=== PATIENT | female | born 1990 | race Caucasian/White ===

== ENCOUNTER 2017-11-25 00:04 | Emergency (ER) | payer OTHER ==
[~2017-11-25] VITALS: Ht 165.1 cm; Wt 59.1 kg
[2017-11-25] MEDS ORDERED: ACETAMINOPHEN 500 MG TABLET PO ONE (00:15)
[2017-11-25] MEDS ORDERED: SODIUM CHLORIDE 0.9% 1,000 ML IV ONE (00:31)
[2017-11-25 00:43] LABS: BASOPHILS % (AUTO) 0.2 % (0.0-2.0); EOSINOPHILS % (AUTO) 0 % (1.0-6.0); HEMATOCRIT 25.7 % (36-46); HEMOGLOBIN 7.8 g/dL (12.0-16.0); LYMPHOCYTES # (AUTO) 1.5 K/uL (1.0-4.8); LYMPHOCYTES % (AUTO) 9.6 % (22.0-44.0); MEAN CORPUSCULAR HEMOGLOBIN 17.3 pg (26.0-34.0); MEAN CORPUSCULAR HGB CONC 30.2 G/dL (31.0-37.0); MEAN CORPUSCULAR VOLUME 57 fL (80-100); MONOCYTES # (AUTO) 1.9 K/uL (0.1-1.0); MONOCYTES % (AUTO) 11.8 % (2.0-9.0); NEUTROPHILS # (AUTO) 12.5 K/uL (1.8-7.7); NEUTROPHILS % (AUTO) 78.4 % (40.0-70.0); PLATELET COUNT (AUTO) 168 K/uL (150-450); RED BLOOD CELL COUNT(AUTO) 4.49 MIL/uL (4.00-5.20); RED CELL DISTRIBUTION WIDTH 19.9 % (11.5-14.5)
[2017-11-25 00:52] LABS: ANION GAP 12 mmol/L (8-16); CALCIUM, TOTAL 8.8 mg/dL (8.8-10.5); CARBON DIOXIDE 24 mmol/L (22-29); CHLORIDE 94 mmol/L (98-107); CREATININE 0.99 mg/dL (0.60-1.30); GLOMERULAR FILTR. RATE CALC > 60 mL/min (>60); GLUCOSE,RANDOM 148 mg/dL (70-110); SODIUM SERUM 130 mmol/L (136-145); UREA NITROGEN, BLOOD 9 mg/dL (7-18)
[2017-11-25 00:58] LABS: ALANINE AMINOTRANSFERASE 23 U/L (12-78); ALBUMIN 3.5 g/dL (3.4-5.0); ALKALINE PHOSPHATASE 71 U/L (46-116); ASPARTATE AMINOTRANSFERASE 23 U/L (15-37); BILIRUBIN,TOTAL 0.6 mg/dL (0.1-1.0); TOTAL PROTEIN, SERUM 9.1 g/dL (6.4-8.2)
[2017-11-25] MEDS ORDERED: POTASSIUM CHLORIDE 10% 40 MEQ/30 ML LIQUID UDCUP PO ONE (01:15)
[2017-11-25 01:30] LABS: % IRON SATURATION 2.1 % (22-44); IRON, SERUM 8 mcg/dL (50-175); TOTAL IRON BINDING CAPACITY 379 mcg/dL (250-450)
[2017-11-25 02:00] LABS: APPEARANCE,URINE SLIGHTLY CLOUDY (CLEAR)
[2017-11-25 02:01] LABS: BILIRUBIN,URINE NEGATIVE (NEGATIVE); GLUCOSE, URINE (UA) NEGATIVE (NEGATIVE); KETONES,URINE NEGATIVE (NEGATIVE); LEUKOCYTE ESTERASE ,URINE SMALL (NEGATIVE); NITRATE,URINE POSITIVE (NEGATIVE); OCCULT BLOOD,URINE MODERATE (NEGATIVE); PROTEIN,URINE POS 1+ (NEGATIVE); UROBILINOGEN,URINE 0.2 mg/dL (<=1.0)
[2017-11-25 02:17] LABS: BACTERIA,URINE Moderate /HPF (None Seen); SQUAMOUS EPITHELIAL CELL,UR Few /LPF (None Seen)
[2017-11-25] MEDS ORDERED: CefTRIAXone SODIUM 1 GM in DEXTROSE 5%-WATER 10 ML IV ONE (02:30)
[2017-11-25 02:41] VITALS: BP 110/65
== END 2017-11-25 03:09 | disposition home or self-care (01) ==
LOC: EMS 00:04
DX: N12 Tubulo-interstitial nephritis, not specified as acute or chronic (principal); D50.8 Other iron deficiency anemias
CPT/HCPCS: 36415; 80053; 81001; 83540; 83550; 84703; 85025; 87077; 87086; 93005; 96374; 99285; J0696; J7030; J7060

== ENCOUNTER 2019-01-29 02:00 | Emergency (ER) | payer OTHER ==
[~2019-01-29] VITALS: Ht 167.6 cm; Wt 56.8 kg
[2019-01-29] MEDS ORDERED: FERR-82 PO (02:07)
[2019-01-29 03:04] VITALS: BP 133/84
== END 2019-01-29 03:07 | disposition home or self-care (01) ==
LOC: EMS 02:01
DX: D64.9 Anemia, unspecified (principal); Z76.0 Encounter for issue of repeat prescription

== ENCOUNTER 2019-04-09 16:02 | Inpatient (IN) | payer MEDICAID ==
[~2019-04-09] VITALS: Ht 167.6 cm; Wt 59.4 kg
[~2019-04-09 16:02] MED LIST: FERR-82 PO
[2019-04-09] MEDS ORDERED: ZOLPIDEM TARTRATE 10 MG TABLET PO PRN (17:45)
[2019-04-09] MEDS ORDERED: HALOPERIDOL 5 MG TABLET PO PRN (17:45)
[2019-04-09] MEDS ORDERED: LORazepam 1 MG TABLET PO PRN (17:45)
[2019-04-09 18:42] VITALS: BP 112/62
[2019-04-09] MEDS ORDERED: INFLUENZA VIRUS VACCINE QVS 2019-20 (3YR+)/PF 60 MCG/0.5 ML SYRINGE IM ONE (19:00)
[2019-04-10 01:14] VITALS: BP 119/64
[2019-04-10 07:19] LABS: BASOPHILS % (AUTO) 0.8 % (0.0-2.0); EOSINOPHILS % (AUTO) 0.9 % (1.0-6.0); HEMATOCRIT 33.1 % (36-46); HEMOGLOBIN 10.7 g/dL (12.0-16.0); LYMPHOCYTES # (AUTO) 1.7 K/uL (1.0-4.8); LYMPHOCYTES % (AUTO) 38.1 % (22.0-44.0); MEAN CORPUSCULAR HEMOGLOBIN 24.8 pg (26.0-34.0); MEAN CORPUSCULAR HGB CONC 32.5 G/dL (31.0-37.0); MEAN CORPUSCULAR VOLUME 77 fL (80-100); MONOCYTES # (AUTO) 0.5 K/uL (0.1-1.0); MONOCYTES % (AUTO) 10.4 % (2.0-9.0); NEUTROPHILS # (AUTO) 2.2 K/uL (1.8-7.7); NEUTROPHILS % (AUTO) 49.8 % (40.0-70.0); PLATELET COUNT (AUTO) 236 K/uL (150-450); RED BLOOD CELL COUNT(AUTO) 4.33 MIL/uL (4.00-5.20); RED CELL DISTRIBUTION WIDTH 17.5 % (11.5-14.5)
[2019-04-10 07:53] LABS: HEMOGLOBIN A1C 4.6 % (4.5-6.2)
[2019-04-10 08:03] LABS: ALANINE AMINOTRANSFERASE 14 U/L (12-78); ALBUMIN 3.8 g/dL (3.4-5.0); ALKALINE PHOSPHATASE 38 U/L (46-116); ANION GAP 9 mmol/L (8-16); ASPARTATE AMINOTRANSFERASE 20 U/L (15-37); BILIRUBIN,TOTAL 0.5 mg/dL (0.1-1.0); CALCIUM, TOTAL 9.1 mg/dL (8.8-10.5); CARBON DIOXIDE 28 mmol/L (22-29); CHLORIDE 104 mmol/L (98-107); CHOL/HDL RATIO 3.2 (3.9-5.7); CHOLESTEROL 106 mg/dL (131-200); CREATININE 0.78 mg/dL (0.60-1.30); FREE T4 (FREE THYROXINE) 1.78 ng/dL (0.76-1.46); GLOMERULAR FILTR. RATE CALC > 60 mL/min (>60); GLUCOSE,RANDOM 88 mg/dL (70-110); HCG,QUANTITATIVE < 1 mIU/mL (0-6); HDL CHOLESTEROL 33 mg/dL (40-60); LDL CHOL (CALC.) 59 mg/dL (0-130); POTASSIUM 3.4 mmol/L (3.5-5.1); SODIUM SERUM 141 mmol/L (136-145); THYROID STIMULATING HORMONE 1.15 uIU/mL (0.36-3.74); TRIGLYCERIDES 69 mg/dL (15-150); UREA NITROGEN, BLOOD 8 mg/dL (7-18)
[2019-04-10 08:16] VITALS: BP 114/74
[2019-04-10] MEDS: ARIPiprazole 5 MG TABLET PO SCH (10:00)
[2019-04-10] MEDS ORDERED: ONDANSETRON HCL 4 MG TABLET PO PRN (11:15)
[2019-04-10] MEDS ORDERED: IBUPROFEN 400 MG TABLET PO PRN (11:15)
[2019-04-10] MEDS ORDERED: GuaiFENesin/D-METHORPHAN [SUGAR-FREE] 200-20MG/10 ML SYRUP UDCUP PO PRN (11:15)
[2019-04-10] MEDS ORDERED: MAGNESIUM HYDROXIDE SUSPENSION 30 ML UDCUP PO PRN (11:15)
[2019-04-10] MEDS ORDERED: POTASSIUM CHLORIDE 20 MEQ ER TABLET PO ONE (11:15)
[2019-04-10] MEDS ORDERED: MAG HYDROX/AL HYDROX/SIMETH ES 30 ML SUSPENSION UDCUP PO PRN (11:15)
[2019-04-10] MEDS ORDERED: PETROLATUM,WHITE 28 GM JELLY TP PRN (11:15)
[2019-04-10] MEDS ORDERED: ACETAMINOPHEN 325 MG TABLET PO PRN (11:15)
[2019-04-10] MEDS ORDERED: LOPERAMIDE HCL 2 MG CAPSULE PO PRN (11:15)
[2019-04-10] MEDS ORDERED: NICOTINE 14 MG/24 HOUR PATCH TD PRN (11:15)
[2019-04-10] MEDS ORDERED: CloNIDine HCL 0.1 MG TABLET PO PRN (11:15)
[2019-04-10] MEDS ORDERED: ALBUTEROL SULFATE HFA 90 MCG/PUFF 8 GM INHALER IH PRN (11:15)
[2019-04-10] MEDS ORDERED: DOCUSATE SODIUM 100 MG CAPSULE PO PRN (11:15)
[2019-04-10 16:04] VITALS: BP 119/73
[2019-04-11 00:29] VITALS: BP 110/68
[2019-04-11] MEDS: FERROUS SULFATE 325 MG EC TABLET PO SCH (07:00)
[2019-04-11] MEDS: ARIPiprazole 5 MG TABLET PO SCH (08:13)
[2019-04-11 08:32] VITALS: BP 125/64
[2019-04-11 16:11] VITALS: BP 117/79
[2019-04-11 17:10] VITALS: BP 112/68
[2019-04-12 00:30] VITALS: BP 116/80
[2019-04-12] MEDS: FERROUS SULFATE 325 MG EC TABLET PO SCH (07:06)
[2019-04-12 07:53] LABS: APPEARANCE,URINE CLOUDY (CLEAR); BILIRUBIN,URINE NEGATIVE (NEGATIVE); GLUCOSE, URINE (UA) NEGATIVE (NEGATIVE); KETONES,URINE NEGATIVE (NEGATIVE); LEUKOCYTE ESTERASE ,URINE SMALL (NEGATIVE); NITRATE,URINE NEGATIVE (NEGATIVE); OCCULT BLOOD,URINE MODERATE (NEGATIVE); PROTEIN,URINE NEGATIVE (NEGATIVE); UROBILINOGEN,URINE 0.2 mg/dL (<=1.0)
[2019-04-12 07:54] LABS: AMPHET/METH SCREEN,URINE NEGATIVE (NEGATIVE); BARBITURATE SCREEN, URINE NEGATIVE (NEGATIVE); BENZODIAZEPINES SCREEN,URINE NEGATIVE (NEGATIVE); CANNABINOID SCREEN,URINE NEGATIVE (NEGATIVE); COCAINE SCREEN,URINE NEGATIVE (NEGATIVE); METHADONE SCREEN, URINE NEGATIVE (NEGATIVE); OPIATE SCREEN,URINE NEGATIVE (NEGATIVE)
[2019-04-12 07:59] LABS: PHENCYCLIDINE SCREEN,URINE NEGATIVE (NEGATIVE)
[2019-04-12 08:03] LABS: BACTERIA,URINE Few /HPF (None Seen); RBC,URINE 0-2 /HPF (0-2); SQUAMOUS EPITHELIAL CELL,UR Many /LPF (None Seen)
[2019-04-12] MEDS: ARIPiprazole 5 MG TABLET PO SCH (08:38)
[2019-04-12 09:09] VITALS: BP 114/75
[2019-04-12] MEDS ORDERED: ARIP5TAB8 PO (10:54)
== END 2019-04-12 14:20 | disposition home or self-care (01) | DRG 751 ==
LOC: B2S 17:52
DX: F29 Unspecified psychosis not due to a substance or known physiological condition (principal); D64.9 Anemia, unspecified; D72.819 Decreased white blood cell count, unspecified; E87.6 Hypokalemia; Z59.0 Homelessness; Z79.899 Other long term (current) drug therapy
CPT/HCPCS: 80307; 83036; 84132; 84439; 84443; 87081

== ENCOUNTER 2019-04-29 17:06 | Inpatient (IN) | payer MEDICAID, OTHER ==
[~2019-04-29] VITALS: Ht 165.1 cm; Wt 58.9 kg
[~2019-04-29 17:06] MED LIST changes: +ARIP5TAB8 PO
[2019-04-29 17:40] LABS: BASOPHILS % (AUTO) 0.4 % (0.0-2.0); EOSINOPHILS % (AUTO) 0.2 % (1.0-6.0); HEMATOCRIT 31.2 % (36-46); HEMOGLOBIN 9.9 g/dL (12.0-16.0); LYMPHOCYTES # (AUTO) 1.2 K/uL (1.0-4.8); MEAN CORPUSCULAR HEMOGLOBIN 24.3 pg (26.0-34.0); MEAN CORPUSCULAR HGB CONC 31.9 G/dL (31.0-37.0); MEAN CORPUSCULAR VOLUME 76 fL (80-100); MONOCYTES # (AUTO) 0.7 K/uL (0.1-1.0); MONOCYTES % (AUTO) 10.6 % (2.0-9.0); NEUTROPHILS # (AUTO) 4.2 K/uL (1.8-7.7); NEUTROPHILS % (AUTO) 68.8 % (40.0-70.0); PLATELET COUNT (AUTO) 452 K/uL (150-450); RED BLOOD CELL COUNT(AUTO) 4.09 MIL/uL (4.00-5.20); RED CELL DISTRIBUTION WIDTH 15.9 % (11.5-14.5)
[2019-04-29 18:01] LABS: ANION GAP 10 mmol/L (8-16); CALCIUM, TOTAL 9.5 mg/dL (8.8-10.5); CARBON DIOXIDE 29 mmol/L (22-29); CHLORIDE 102 mmol/L (98-107); CREATININE 0.66 mg/dL (0.60-1.30); GLOMERULAR FILTR. RATE CALC > 60 mL/min (>60); GLUCOSE,RANDOM 117 mg/dL (70-110); POTASSIUM 3.1 mmol/L (3.5-5.1); SODIUM SERUM 141 mmol/L (136-145); UREA NITROGEN, BLOOD 5 mg/dL (7-18)
[2019-04-29 18:15] LABS: HCG,QUANTITATIVE < 1 mIU/mL (0-6)
[2019-04-29 18:57] LABS: ALANINE AMINOTRANSFERASE 78 U/L (12-78); ALBUMIN 3.2 g/dL (3.4-5.0); ALKALINE PHOSPHATASE 77 U/L (46-116); ASPARTATE AMINOTRANSFERASE 42 U/L (15-37); BILIRUBIN,TOTAL 0.2 mg/dL (0.1-1.0); THYROID STIMULATING HORMONE 1.45 uIU/mL (0.36-3.74); TOTAL PROTEIN, SERUM 8.4 g/dL (6.4-8.2)
[2019-04-29 19:39] LABS: APPEARANCE,URINE CLOUDY (CLEAR); BILIRUBIN,URINE NEGATIVE (NEGATIVE); GLUCOSE, URINE (UA) NEGATIVE (NEGATIVE); KETONES,URINE NEGATIVE (NEGATIVE); LEUKOCYTE ESTERASE ,URINE SMALL (NEGATIVE); NITRATE,URINE NEGATIVE (NEGATIVE); OCCULT BLOOD,URINE LARGE (NEGATIVE); PROTEIN,URINE NEGATIVE (NEGATIVE); UROBILINOGEN,URINE 0.2 mg/dL (<=1.0)
[2019-04-29] MEDS ORDERED: POTASSIUM CHLORIDE 20 MEQ ER TABLET PO ONE (19:45)
[2019-04-29 19:48] LABS: AMPHET/METH SCREEN,URINE NEGATIVE (NEGATIVE); BARBITURATE SCREEN, URINE NEGATIVE (NEGATIVE); BENZODIAZEPINES SCREEN,URINE NEGATIVE (NEGATIVE); CANNABINOID SCREEN,URINE NEGATIVE (NEGATIVE); COCAINE SCREEN,URINE NEGATIVE (NEGATIVE); METHADONE SCREEN, URINE NEGATIVE (NEGATIVE); OPIATE SCREEN,URINE NEGATIVE (NEGATIVE); PHENCYCLIDINE SCREEN,URINE NEGATIVE (NEGATIVE)
[2019-04-29 19:51] LABS: BACTERIA,URINE Moderate /HPF (None Seen); RBC,URINE 0-2 /HPF (0-2)
[2019-04-29 19:52] LABS: SQUAMOUS EPITHELIAL CELL,UR Many /LPF (None Seen)
[2019-04-30 00:43] VITALS: BP 120/89
[2019-04-30] MEDS ORDERED: INFLUENZA VIRUS VACCINE QVS 2019-20 (3YR+)/PF 60 MCG/0.5 ML SYRINGE IM ONE (02:15)
[2019-04-30 08:09] VITALS: BP 114/63
[2019-04-30] MEDS: ARIPiprazole 5 MG TABLET PO SCH (09:52)
[2019-04-30] MEDS ORDERED: ACETAMINOPHEN 325 MG TABLET PO PRN (11:45)
[2019-04-30] MEDS ORDERED: PETROLATUM,WHITE 28 GM JELLY TP PRN (11:45)
[2019-04-30] MEDS ORDERED: DOCUSATE SODIUM 100 MG CAPSULE PO PRN (11:45)
[2019-04-30] MEDS ORDERED: LOPERAMIDE HCL 2 MG CAPSULE PO PRN (11:45)
[2019-04-30] MEDS ORDERED: IBUPROFEN 400 MG TABLET PO PRN (11:45)
[2019-04-30] MEDS ORDERED: NICOTINE 14 MG/24 HOUR PATCH TD PRN (11:45)
[2019-04-30] MEDS ORDERED: MAG HYDROX/AL HYDROX/SIMETH ES 30 ML SUSPENSION UDCUP PO PRN (11:45)
[2019-04-30] MEDS ORDERED: MAGNESIUM HYDROXIDE SUSPENSION 30 ML UDCUP PO PRN (11:45)
[2019-04-30] MEDS ORDERED: ONDANSETRON HCL 4 MG TABLET PO PRN (11:45)
[2019-04-30] MEDS ORDERED: ALBUTEROL SULFATE HFA 90 MCG/PUFF 8 GM INHALER IH PRN (11:45)
[2019-04-30] MEDS ORDERED: CloNIDine HCL 0.1 MG TABLET PO PRN (11:45)
[2019-04-30] MEDS ORDERED: GuaiFENesin/D-METHORPHAN [SUGAR-FREE] 200-20MG/10 ML SYRUP UDCUP PO PRN (11:45)
[2019-04-30] MEDS: FERROUS SULFATE 325 MG EC TABLET PO SCH (15:57)
[2019-04-30] MEDS: CEPHALEXIN MONOHYDRATE 250 MG CAPSULE PO SCH ×2 (15:57→17:41)
[2019-04-30 16:03] VITALS: BP 112/72
[2019-04-30] MEDS: HALOPERIDOL 5 MG TABLET PO PRN (17:42)
[2019-04-30] MEDS: LORazepam 2 MG TABLET PO PRN (17:42)
[2019-04-30] MEDS ORDERED: POTASSIUM CHLORIDE 20 MEQ ER TABLET PO ONE (20:45)
[2019-04-30] MEDS ORDERED: POTASSIUM CHLORIDE 10% 40 MEQ/30 ML LIQUID UDCUP PO ONE (21:30)
[2019-05-01 06:38] VITALS: BP 100/60
[2019-05-01] MEDS: FERROUS SULFATE 325 MG EC TABLET PO SCH ×2 (07:00→17:00)
[2019-05-01 08:27] VITALS: BP 100/51
[2019-05-01] MEDS: CEPHALEXIN MONOHYDRATE 250 MG CAPSULE PO SCH (09:00)
[2019-05-01] MEDS: ARIPiprazole 5 MG TABLET PO SCH (09:00)
[2019-05-01] MEDS: CEPHALEXIN MONOHYDRATE 500 MG CAPSULE PO SCH ×2 (13:00→17:00)
[2019-05-01 13:42] VITALS: BP 105/65
[2019-05-01 16:14] VITALS: BP 113/81
[2019-05-02 04:25] VITALS: BP 130/97
[2019-05-02] MEDS: FERROUS SULFATE 325 MG EC TABLET PO SCH ×2 (06:45→16:13)
[2019-05-02 08:24] VITALS: BP 103/61
[2019-05-02] MEDS: ARIPiprazole 5 MG TABLET PO SCH (09:00)
[2019-05-02] MEDS: CEPHALEXIN MONOHYDRATE 500 MG CAPSULE PO SCH ×3 (09:00→16:14)
[2019-05-02 16:03] VITALS: BP 123/88
[2019-05-03 02:32] VITALS: BP 132/77
[2019-05-03] MEDS: FERROUS SULFATE 325 MG EC TABLET PO SCH ×2 (06:36→17:00)
[2019-05-03 08:13] VITALS: BP 106/61
[2019-05-03] MEDS: CEPHALEXIN MONOHYDRATE 500 MG CAPSULE PO SCH ×3 (08:50→17:00)
[2019-05-03] MEDS: ARIPiprazole 5 MG TABLET PO SCH (08:50)
[2019-05-03 16:12] VITALS: BP 109/67
[2019-05-03] MEDS: MEGESTROL ACETATE 400 MG/10 ML SUSPENSION UDCUP PO SCH (17:45)
[2019-05-04] MEDS: FERROUS SULFATE 325 MG EC TABLET PO SCH ×2 (06:32→17:00)
[2019-05-04 08:14] VITALS: BP 127/68
[2019-05-04] MEDS: CEPHALEXIN MONOHYDRATE 500 MG CAPSULE PO SCH ×3 (09:00→17:00)
[2019-05-04] MEDS: ARIPiprazole 5 MG TABLET PO SCH (09:00)
[2019-05-04] MEDS: MEGESTROL ACETATE 400 MG/10 ML SUSPENSION UDCUP PO SCH (09:00)
[2019-05-05] MEDS: FERROUS SULFATE 325 MG EC TABLET PO SCH ×2 (06:48→16:02)
[2019-05-05] MEDS: CEPHALEXIN MONOHYDRATE 500 MG CAPSULE PO SCH ×3 (09:00→16:02)
[2019-05-05] MEDS: MEGESTROL ACETATE 400 MG/10 ML SUSPENSION UDCUP PO SCH (09:00)
[2019-05-05] MEDS: ARIPiprazole 5 MG TABLET PO SCH (09:00)
[2019-05-06] MEDS: FERROUS SULFATE 325 MG EC TABLET PO SCH ×2 (06:35→17:00)
[2019-05-06 06:58] VITALS: BP 103/63
[2019-05-06 08:00] VITALS: BP 112/79
[2019-05-06] MEDS: CEPHALEXIN MONOHYDRATE 500 MG CAPSULE PO SCH (08:14)
[2019-05-06] MEDS: ARIPiprazole 5 MG TABLET PO SCH (08:14)
[2019-05-06] MEDS: MEGESTROL ACETATE 400 MG/10 ML SUSPENSION UDCUP PO SCH (08:15)
[2019-05-06] MEDS ORDERED: MEGE400O4 PO (09:16)
[2019-05-06] MEDS ORDERED: CEPH500 PO (09:16)
[2019-05-06 18:19] VITALS: BP 109/81
[2019-05-07] MEDS: FERROUS SULFATE 325 MG EC TABLET PO SCH ×2 (07:02→17:30)
[2019-05-07] MEDS: ARIPiprazole 5 MG TABLET PO SCH (09:00)
[2019-05-07] MEDS: MEGESTROL ACETATE 400 MG/10 ML SUSPENSION UDCUP PO SCH (09:00)
[2019-05-07 16:56] VITALS: BP 103/75
[2019-05-07] MEDS: LURASIDONE HCL 40 MG TABLET PO SCH (17:30)
[2019-05-07] MEDS: HALOPERIDOL LACTATE 5 MG/ML VIAL IM PRN (17:44)
[2019-05-08] MEDS: FERROUS SULFATE 325 MG EC TABLET PO SCH ×2 (07:00→17:00)
[2019-05-08] MEDS: LURASIDONE HCL 40 MG TABLET PO SCH ×2 (07:00→17:01)
[2019-05-08] MEDS: MEGESTROL ACETATE 400 MG/10 ML SUSPENSION UDCUP PO SCH (08:40)
[2019-05-08] MEDS: HALOPERIDOL LACTATE 5 MG/ML VIAL IM PRN ×2 (12:01→17:10)
[2019-05-09] MEDS: LURASIDONE HCL 40 MG TABLET PO SCH ×2 (06:35→17:30)
[2019-05-09] MEDS: FERROUS SULFATE 325 MG EC TABLET PO SCH ×2 (06:35→17:30)
[2019-05-09] MEDS: MEGESTROL ACETATE 400 MG/10 ML SUSPENSION UDCUP PO SCH (08:29)
[2019-05-09 16:33] VITALS: BP 91/54
[2019-05-09 17:00] VITALS: BP 104/67
[2019-05-09] MEDS: HALOPERIDOL LACTATE 5 MG/ML VIAL IM PRN (17:43)
[2019-05-10] MEDS: LURASIDONE HCL 40 MG TABLET PO SCH ×2 (07:00→16:50)
[2019-05-10] MEDS: FERROUS SULFATE 325 MG EC TABLET PO SCH ×2 (07:00→16:49)
[2019-05-10] MEDS: MEGESTROL ACETATE 400 MG/10 ML SUSPENSION UDCUP PO SCH (09:00)
[2019-05-10] MEDS: HALOPERIDOL LACTATE 5 MG/ML VIAL IM PRN (16:37)
[2019-05-10 16:54] VITALS: BP 90/54
[2019-05-11] MEDS: FERROUS SULFATE 325 MG EC TABLET PO SCH ×2 (06:51→18:51)
[2019-05-11] MEDS: LURASIDONE HCL 40 MG TABLET PO SCH ×2 (06:52→18:51)
[2019-05-11 08:33] VITALS: BP 100/60
[2019-05-11 08:43] VITALS: BP 100/60
[2019-05-11] MEDS: MEGESTROL ACETATE 400 MG/10 ML SUSPENSION UDCUP PO SCH (09:33)
[2019-05-12] MEDS: FERROUS SULFATE 325 MG EC TABLET PO SCH ×2 (06:43→17:10)
[2019-05-12] MEDS: LURASIDONE HCL 40 MG TABLET PO SCH ×2 (06:43→17:10)
[2019-05-12 08:00] VITALS: BP 116/76
[2019-05-12] MEDS: MEGESTROL ACETATE 400 MG/10 ML SUSPENSION UDCUP PO SCH (08:45)
[2019-05-12 18:58] VITALS: BP 111/72
[2019-05-13] MEDS: FERROUS SULFATE 325 MG EC TABLET PO SCH ×2 (06:37→17:58)
[2019-05-13] MEDS: LURASIDONE HCL 40 MG TABLET PO SCH ×2 (06:37→17:59)
[2019-05-13] MEDS: MEGESTROL ACETATE 400 MG/10 ML SUSPENSION UDCUP PO SCH (08:53)
[2019-05-13 09:44] VITALS: BP 109/70
[2019-05-13 16:08] VITALS: BP 104/71
[2019-05-14] MEDS: FERROUS SULFATE 325 MG EC TABLET PO SCH ×2 (06:54→17:29)
[2019-05-14] MEDS: LURASIDONE HCL 40 MG TABLET PO SCH ×2 (06:54→17:29)
[2019-05-14 08:00] VITALS: BP 101/60
[2019-05-14] MEDS: MEGESTROL ACETATE 400 MG/10 ML SUSPENSION UDCUP PO SCH (09:00)
[2019-05-14 16:00] VITALS: BP 102/65
[2019-05-15] MEDS: LURASIDONE HCL 40 MG TABLET PO SCH ×2 (06:35→17:29)
[2019-05-15] MEDS: FERROUS SULFATE 325 MG EC TABLET PO SCH ×2 (06:35→17:29)
[2019-05-15] MEDS: MEGESTROL ACETATE 400 MG/10 ML SUSPENSION UDCUP PO SCH (08:35)
[2019-05-15 13:32] VITALS: BP 106/61
[2019-05-15 16:12] VITALS: BP 109/77
[2019-05-16] MEDS: ZOLPIDEM TARTRATE 10 MG TABLET PO PRN (02:09)
[2019-05-16] MEDS: HALOPERIDOL 5 MG TABLET PO PRN (02:09)
[2019-05-16] MEDS: FERROUS SULFATE 325 MG EC TABLET PO SCH ×2 (06:42→16:33)
[2019-05-16] MEDS: LURASIDONE HCL 40 MG TABLET PO SCH ×2 (06:42→16:33)
[2019-05-16] MEDS: MEGESTROL ACETATE 400 MG/10 ML SUSPENSION UDCUP PO SCH (08:19)
[2019-05-16 08:21] VITALS: BP 89/51
[2019-05-16 16:54] VITALS: BP 114/64
[2019-05-17] MEDS: LURASIDONE HCL 40 MG TABLET PO SCH ×2 (06:58→16:54)
[2019-05-17] MEDS: FERROUS SULFATE 325 MG EC TABLET PO SCH ×2 (06:58→16:53)
[2019-05-17 08:00] VITALS: BP 114/75
[2019-05-17] MEDS: MEGESTROL ACETATE 400 MG/10 ML SUSPENSION UDCUP PO SCH (09:58)
[2019-05-17 17:23] VITALS: BP 112/78
[2019-05-18] MEDS: FERROUS SULFATE 325 MG EC TABLET PO SCH ×2 (06:49→17:40)
[2019-05-18] MEDS: LURASIDONE HCL 40 MG TABLET PO SCH ×2 (06:49→17:41)
[2019-05-18 08:00] VITALS: BP 109/75
[2019-05-18] MEDS: MEGESTROL ACETATE 400 MG/10 ML SUSPENSION UDCUP PO SCH (09:32)
[2019-05-18 16:00] VITALS: BP 108/80
[2019-05-19] MEDS: ZOLPIDEM TARTRATE 10 MG TABLET PO PRN (00:59)
[2019-05-19] MEDS: FERROUS SULFATE 325 MG EC TABLET PO SCH ×2 (06:56→16:42)
[2019-05-19] MEDS: LURASIDONE HCL 40 MG TABLET PO SCH ×2 (06:57→16:42)
[2019-05-19 08:00] VITALS: BP 116/66
[2019-05-19] MEDS: MEGESTROL ACETATE 400 MG/10 ML SUSPENSION UDCUP PO SCH (10:26)
[2019-05-19 16:34] VITALS: BP 107/70
[2019-05-20] MEDS: FERROUS SULFATE 325 MG EC TABLET PO SCH ×2 (07:00→16:44)
[2019-05-20] MEDS: LURASIDONE HCL 40 MG TABLET PO SCH ×2 (07:01→16:44)
[2019-05-20 08:00] VITALS: BP 124/78
[2019-05-20] MEDS: MEGESTROL ACETATE 400 MG/10 ML SUSPENSION UDCUP PO SCH (08:32)
[2019-05-20] MEDS: ESCITALOPRAM OXALATE 10 MG TABLET PO SCH (12:04)
[2019-05-20 17:11] VITALS: BP 135/81
[2019-05-21] MEDS: FERROUS SULFATE 325 MG EC TABLET PO SCH ×2 (06:54→16:55)
[2019-05-21] MEDS: LURASIDONE HCL 40 MG TABLET PO SCH ×2 (06:54→16:56)
[2019-05-21 08:00] VITALS: BP 106/65
[2019-05-21] MEDS: MEGESTROL ACETATE 400 MG/10 ML SUSPENSION UDCUP PO SCH (09:26)
[2019-05-21] MEDS: ESCITALOPRAM OXALATE 10 MG TABLET PO SCH (09:26)
[2019-05-21 16:15] VITALS: BP 97/55
[2019-05-22] MEDS: ZOLPIDEM TARTRATE 10 MG TABLET PO PRN (00:58)
[2019-05-22] MEDS: FERROUS SULFATE 325 MG EC TABLET PO SCH ×2 (06:36→17:54)
[2019-05-22] MEDS: LURASIDONE HCL 40 MG TABLET PO SCH ×2 (06:36→17:55)
[2019-05-22 08:00] VITALS: BP 120/73
[2019-05-22] MEDS: LORazepam 2 MG TABLET PO PRN (08:14)
[2019-05-22] MEDS: ESCITALOPRAM OXALATE 10 MG TABLET PO SCH (08:15)
[2019-05-22] MEDS: MEGESTROL ACETATE 400 MG/10 ML SUSPENSION UDCUP PO SCH (08:15)
[2019-05-22 16:30] VITALS: BP 102/64
[2019-05-23] MEDS: FERROUS SULFATE 325 MG EC TABLET PO SCH ×2 (07:10→16:52)
[2019-05-23] MEDS: LURASIDONE HCL 40 MG TABLET PO SCH ×2 (07:13→16:53)
[2019-05-23 08:00] VITALS: BP 110/68
[2019-05-23] MEDS: MEGESTROL ACETATE 400 MG/10 ML SUSPENSION UDCUP PO SCH (08:55)
[2019-05-23] MEDS: ESCITALOPRAM OXALATE 10 MG TABLET PO SCH (08:55)
[2019-05-23 16:08] VITALS: BP 105/65
[2019-05-23] MEDS: MUPIROCIN CALCIUM 2% 22 GM OINTMENT NASAL SCH (16:52)
[2019-05-24] MEDS: LURASIDONE HCL 40 MG TABLET PO SCH ×2 (06:34→16:28)
[2019-05-24] MEDS: FERROUS SULFATE 325 MG EC TABLET PO SCH ×2 (06:34→16:28)
[2019-05-24 08:00] VITALS: BP 120/76
[2019-05-24] MEDS: ESCITALOPRAM OXALATE 10 MG TABLET PO SCH (09:14)
[2019-05-24] MEDS: MUPIROCIN CALCIUM 2% 22 GM OINTMENT NASAL SCH ×2 (09:14→16:28)
[2019-05-24] MEDS: MEGESTROL ACETATE 400 MG/10 ML SUSPENSION UDCUP PO SCH (09:15)
[2019-05-24 17:45] VITALS: BP 118/69
[2019-05-25] MEDS: LURASIDONE HCL 40 MG TABLET PO SCH ×2 (07:06→17:40)
[2019-05-25] MEDS: FERROUS SULFATE 325 MG EC TABLET PO SCH ×2 (07:06→17:40)
[2019-05-25 08:00] VITALS: BP 130/82
[2019-05-25] MEDS: MEGESTROL ACETATE 400 MG/10 ML SUSPENSION UDCUP PO SCH (10:21)
[2019-05-25] MEDS: MUPIROCIN CALCIUM 2% 22 GM OINTMENT NASAL SCH ×2 (10:21→17:40)
[2019-05-25] MEDS: ESCITALOPRAM OXALATE 10 MG TABLET PO SCH (10:22)
[2019-05-26] MEDS: LURASIDONE HCL 40 MG TABLET PO SCH ×2 (07:06→16:23)
[2019-05-26] MEDS: FERROUS SULFATE 325 MG EC TABLET PO SCH ×2 (07:06→16:23)
[2019-05-26] MEDS: ESCITALOPRAM OXALATE 10 MG TABLET PO SCH (09:16)
[2019-05-26] MEDS: MEGESTROL ACETATE 400 MG/10 ML SUSPENSION UDCUP PO SCH (09:17)
[2019-05-26] MEDS: MUPIROCIN CALCIUM 2% 22 GM OINTMENT NASAL SCH ×2 (09:17→16:23)
[2019-05-26 09:23] VITALS: BP 103/63
[2019-05-26 16:05] VITALS: BP 121/85
[2019-05-27] MEDS: FERROUS SULFATE 325 MG EC TABLET PO SCH ×2 (06:51→17:31)
[2019-05-27] MEDS: LURASIDONE HCL 40 MG TABLET PO SCH ×2 (06:52→17:30)
[2019-05-27] MEDS: MUPIROCIN CALCIUM 2% 22 GM OINTMENT NASAL SCH ×2 (09:11→17:31)
[2019-05-27] MEDS: MEGESTROL ACETATE 400 MG/10 ML SUSPENSION UDCUP PO SCH (09:11)
[2019-05-27] MEDS: ESCITALOPRAM OXALATE 10 MG TABLET PO SCH (09:11)
[2019-05-27 09:24] VITALS: BP 114/67
[2019-05-27 16:45] VITALS: BP 138/91
[2019-05-28] MEDS: FERROUS SULFATE 325 MG EC TABLET PO SCH ×2 (06:44→16:48)
[2019-05-28] MEDS: LURASIDONE HCL 40 MG TABLET PO SCH ×2 (06:44→16:48)
[2019-05-28 08:33] VITALS: BP 112/81
[2019-05-28] MEDS: MEGESTROL ACETATE 400 MG/10 ML SUSPENSION UDCUP PO SCH (10:27)
[2019-05-28] MEDS: MUPIROCIN CALCIUM 2% 22 GM OINTMENT NASAL SCH (10:27)
[2019-05-28] MEDS: ESCITALOPRAM OXALATE 10 MG TABLET PO SCH (10:27)
[2019-05-28 16:00] VITALS: BP 121/77
[2019-05-28] MEDS: BENZTROPINE MESYLATE 1 MG TABLET PO SCH (16:48)
[2019-05-29] MEDS: FERROUS SULFATE 325 MG EC TABLET PO SCH ×2 (06:56→17:16)
[2019-05-29] MEDS: LURASIDONE HCL 40 MG TABLET PO SCH ×2 (06:56→17:16)
[2019-05-29 08:00] VITALS: BP 110/74
[2019-05-29] MEDS: ESCITALOPRAM OXALATE 10 MG TABLET PO SCH (08:21)
[2019-05-29] MEDS: MEGESTROL ACETATE 400 MG/10 ML SUSPENSION UDCUP PO SCH (08:22)
[2019-05-29 15:14] VITALS: BP 101/58
[2019-05-29 16:29] VITALS: BP 110/73
[2019-05-29] MEDS: BENZTROPINE MESYLATE 1 MG TABLET PO SCH (17:16)
[2019-05-30 00:15] VITALS: BP 111/66
[2019-05-30] MEDS: HALOPERIDOL 5 MG TABLET PO PRN (02:10)
[2019-05-30] MEDS: LURASIDONE HCL 40 MG TABLET PO SCH ×2 (07:04→17:35)
[2019-05-30] MEDS: FERROUS SULFATE 325 MG EC TABLET PO SCH ×2 (07:04→17:35)
[2019-05-30 08:05] VITALS: BP 131/93
[2019-05-30] MEDS: MEGESTROL ACETATE 400 MG/10 ML SUSPENSION UDCUP PO SCH (08:23)
[2019-05-30] MEDS: ESCITALOPRAM OXALATE 10 MG TABLET PO SCH (08:23)
[2019-05-30 16:00] VITALS: BP 116/76
[2019-05-30 16:27] VITALS: BP 114/77
[2019-05-30] MEDS: BENZTROPINE MESYLATE 1 MG TABLET PO SCH (17:35)
[2019-05-30 17:39] VITALS: BP 108/72
[2019-05-31 01:45] VITALS: BP 129/85
[2019-05-31] MEDS: LURASIDONE HCL 40 MG TABLET PO SCH ×2 (06:51→16:53)
[2019-05-31] MEDS: FERROUS SULFATE 325 MG EC TABLET PO SCH ×2 (06:51→16:53)
[2019-05-31] MEDS: ESCITALOPRAM OXALATE 10 MG TABLET PO SCH (08:39)
[2019-05-31] MEDS: MEGESTROL ACETATE 400 MG/10 ML SUSPENSION UDCUP PO SCH (08:39)
[2019-05-31 09:17] VITALS: BP 104/69
[2019-05-31 16:52] VITALS: BP 106/65
[2019-05-31] MEDS: BENZTROPINE MESYLATE 1 MG TABLET PO SCH (16:53)
[2019-06-01] MEDS: FERROUS SULFATE 325 MG EC TABLET PO SCH ×2 (06:59→17:30)
[2019-06-01] MEDS: LURASIDONE HCL 40 MG TABLET PO SCH ×2 (07:00→17:30)
[2019-06-01 07:52] VITALS: BP 117/83
[2019-06-01 08:00] VITALS: BP 117/83
[2019-06-01] MEDS: ESCITALOPRAM OXALATE 10 MG TABLET PO SCH (08:12)
[2019-06-01] MEDS: MEGESTROL ACETATE 400 MG/10 ML SUSPENSION UDCUP PO SCH (08:12)
[2019-06-01 17:30] VITALS: BP 107/81
[2019-06-01] MEDS: BENZTROPINE MESYLATE 1 MG TABLET PO SCH (17:30)
[2019-06-02 03:47] VITALS: BP 101/68
[2019-06-02] MEDS: HALOPERIDOL 5 MG TABLET PO PRN (03:57)
[2019-06-02] MEDS: LURASIDONE HCL 40 MG TABLET PO SCH (06:33)
[2019-06-02] MEDS: FERROUS SULFATE 325 MG EC TABLET PO SCH (06:34)
[2019-06-02] MEDS: MEGESTROL ACETATE 400 MG/10 ML SUSPENSION UDCUP PO SCH (08:13)
[2019-06-02] MEDS: ESCITALOPRAM OXALATE 10 MG TABLET PO SCH (08:13)
[2019-06-02] MEDS ORDERED: BENZ1TAB10 PO (08:31)
[2019-06-02] MEDS ORDERED: LURA40 PO (08:31)
[2019-06-02] MEDS ORDERED: ESCI10TA54 PO (08:31)
[2019-06-02 09:52] VITALS: BP 98/66
[2019-06-02] MEDS ORDERED: FERR-89 PO (12:52)
== END 2019-06-02 14:00 | disposition home or self-care (01) | DRG 885 ==
LOC: EMS 17:07 → B2S 20:36 → B3A 04-30 00:02 → 3EC 05-06 17:39
DX: F20.0 Paranoid schizophrenia (principal); B17.9 Acute viral hepatitis, unspecified; N39.0 Urinary tract infection, site not specified; R74.0 Nonspecific elevation of levels of transaminase and lactic acid dehydrogenase [LDH]; D64.9 Anemia, unspecified; F94.0 Selective mutism; R45.87 Impulsiveness; E87.6 Hypokalemia; Z79.899 Other long term (current) drug therapy; Z59.0 Homelessness; Z91.14 Patient's other noncompliance with medication regimen
CPT/HCPCS: 70450; 84132; 84443; 87081; 87086; G0480; J1630

== ENCOUNTER 2019-05-06 09:01 | Emergency (ER) | payer MEDICAID, OTHER ==
[~2019-05-06] VITALS: Ht 167.6 cm; Wt 59.1 kg
[2019-05-06] MEDS ORDERED: CEPH500 PO (09:16)
[2019-05-06] MEDS ORDERED: MEGE400O4 PO (09:16)
[2019-05-06] MEDS ORDERED: SODIUM CHLORIDE 0.9% 1,000 ML IV ONE (09:30)
[2019-05-06 09:50] LABS: BASOPHILS % (AUTO) 0.7 % (0.0-2.0); EOSINOPHILS % (AUTO) 0.3 % (1.0-6.0); HEMATOCRIT 35.8 % (36-46); HEMOGLOBIN 11.6 g/dL (12.0-16.0); LYMPHOCYTES # (AUTO) 0.9 K/uL (1.0-4.8); LYMPHOCYTES % (AUTO) 12.1 % (22.0-44.0); MEAN CORPUSCULAR HEMOGLOBIN 25.3 pg (26.0-34.0); MEAN CORPUSCULAR HGB CONC 32.6 G/dL (31.0-37.0); MEAN CORPUSCULAR VOLUME 78 fL (80-100); MONOCYTES # (AUTO) 0.6 K/uL (0.1-1.0); MONOCYTES % (AUTO) 7.8 % (2.0-9.0); NEUTROPHILS % (AUTO) 79.1 % (40.0-70.0); PLATELET COUNT (AUTO) 602 K/uL (150-450); RED BLOOD CELL COUNT(AUTO) 4.61 MIL/uL (4.00-5.20); RED CELL DISTRIBUTION WIDTH 16.3 % (11.5-14.5)
[2019-05-06 09:56] LABS: ANION GAP 12 mmol/L (8-16); CARBON DIOXIDE 25 mmol/L (22-29); CHLORIDE 103 mmol/L (98-107); CREATININE 0.83 mg/dL (0.60-1.30); GLOMERULAR FILTR. RATE CALC > 60 mL/min (>60); GLUCOSE,RANDOM 107 mg/dL (70-110); POTASSIUM 4.1 mmol/L (3.5-5.1); SODIUM SERUM 140 mmol/L (136-145); UREA NITROGEN, BLOOD 22 mg/dL (7-18)
[2019-05-06 10:02] LABS: ALANINE AMINOTRANSFERASE 25 U/L (12-78); ALBUMIN 4.3 g/dL (3.4-5.0); ALKALINE PHOSPHATASE 69 U/L (46-116); ASPARTATE AMINOTRANSFERASE 10 U/L (15-37); BILIRUBIN,TOTAL 0.8 mg/dL (0.1-1.0)
[2019-05-06 16:52] VITALS: BP 116/78
== END 2019-05-06 17:10 | disposition home or self-care (01) ==
LOC: EMS 09:03
DX: F29 Unspecified psychosis not due to a substance or known physiological condition (principal); Z79.899 Other long term (current) drug therapy
CPT/HCPCS: 36415; 80053; 85025; 99284; J7030

== ENCOUNTER 2020-03-07 01:15 | Emergency (ER) | payer OTHER ==
[~2020-03-07] VITALS: Ht 167.6 cm; Wt 68.2 kg
[~2020-03-07 01:15] MED LIST changes: -ARIP5TAB8 PO; +BENZ1TAB10 PO; +ESCI10TA61 PO; -FERR-82 PO; +FERR-89 PO; +LURA40TA2 PO
[2020-03-07] MEDS ORDERED: CEPH-582 PO (01:27)
[2020-03-07] MEDS ORDERED: HALO10 PO (01:27)
[2020-03-07] MEDS ORDERED: PRED10 PO (01:27)
[2020-03-07] MEDS ORDERED: DiphenhydrAMINE HCL 25 MG CAPSULE PO ONE (01:45)
[2020-03-07 02:05] LABS: BASOPHILS % (AUTO) 0.4 % (0.0-2.0); EOSINOPHILS % (AUTO) 0.3 % (1.0-6.0); HEMATOCRIT 37.8 % (36-46); HEMOGLOBIN 12.5 g/dL (12.0-16.0); LYMPHOCYTES # (AUTO) 2.2 K/uL (1.0-4.8); MEAN CORPUSCULAR HEMOGLOBIN 26.4 pg (26.0-34.0); MEAN CORPUSCULAR VOLUME 80 fL (80-100); MONOCYTES # (AUTO) 0.6 K/uL (0.1-1.0); MONOCYTES % (AUTO) 6.4 % (2.0-9.0); NEUTROPHILS % (AUTO) 67.9 % (40.0-70.0); PLATELET COUNT (AUTO) 237 K/uL (150-450); RED BLOOD CELL COUNT(AUTO) 4.74 MIL/uL (4.00-5.20); RED CELL DISTRIBUTION WIDTH 13.6 % (11.5-14.5)
[2020-03-07 02:13] LABS: ANION GAP 7 mmol/L (8-16); CALCIUM, TOTAL 9.4 mg/dL (8.8-10.5); CARBON DIOXIDE 27 mmol/L (22-29); CHLORIDE 101 mmol/L (98-107); CREATININE 0.98 mg/dL (0.60-1.30); GLOMERULAR FILTR. RATE CALC > 60 mL/min (>60); GLUCOSE,RANDOM 137 mg/dL (70-110); POTASSIUM 3.4 mmol/L (3.5-5.1); SODIUM SERUM 135 mmol/L (136-145); UREA NITROGEN, BLOOD 6 mg/dL (7-18)
[2020-03-07 02:40] LABS: ALANINE AMINOTRANSFERASE 16 U/L (12-78); ALBUMIN 4.1 g/dL (3.4-5.0); ALKALINE PHOSPHATASE 58 U/L (46-116); ASPARTATE AMINOTRANSFERASE 13 U/L (15-37); BILIRUBIN,TOTAL 0.3 mg/dL (0.1-1.0); CREATINE KINASE, TOTAL ONLY 106 U/L (26-192); FREE T4 (FREE THYROXINE) 1.36 ng/dL (0.76-1.46); HCG,QUANTITATIVE 1 mIU/mL (0-6)
[2020-03-07] MEDS ORDERED: SODIUM CHLORIDE 0.9% 500 ML IV ONE (03:15)
[2020-03-07 03:24] VITALS: BP 122/73
== END 2020-03-07 03:32 | disposition home or self-care (01) ==
LOC: EMS 01:15
DX: G25.9 Extrapyramidal and movement disorder, unspecified (principal); Z79.899 Other long term (current) drug therapy
CPT/HCPCS: 36415; 80053; 82550; 84439; 84443; 84702; 85025; 99283; G0480

== ENCOUNTER 2020-11-23 16:57 | Inpatient (IN) | payer MEDICAID, OTHER ==
[~2020-11-23] VITALS: Ht 167.6 cm; Wt 71.0 kg
[~2020-11-23 16:57] MED LIST changes: -BENZ1TAB10 PO; +CEPH-582 PO; -ESCI10TA61 PO; +HALO10 PO; -LURA40TA2 PO; +PRED10 PO
[2020-11-23 17:29] LABS: BASOPHILS % (AUTO) 0.6 % (0.0-2.0); EOSINOPHILS % (AUTO) 0.2 % (1.0-6.0); HEMATOCRIT 37.2 % (36-46); LYMPHOCYTES # (AUTO) 1.6 K/uL (1.0-4.8); MEAN CORPUSCULAR HGB CONC 32.3 G/dL (31.0-37.0); MEAN CORPUSCULAR VOLUME 80 fL (80-100); MONOCYTES # (AUTO) 0.6 K/uL (0.1-1.0); MONOCYTES % (AUTO) 9.6 % (2.0-9.0); NEUTROPHILS # (AUTO) 4.4 K/uL (1.8-7.7); NEUTROPHILS % (AUTO) 65.6 % (40.0-70.0); PLATELET COUNT (AUTO) 256 K/uL (150-450); RED BLOOD CELL COUNT(AUTO) 4.63 MIL/uL (4.00-5.20); RED CELL DISTRIBUTION WIDTH 13.3 % (11.5-14.5)
[2020-11-23 17:33] LABS: ANION GAP 14 mmol/L (8-16); CALCIUM, TOTAL 9.1 mg/dL (8.8-10.5); CARBON DIOXIDE 23 mmol/L (22-29); CHLORIDE 103 mmol/L (98-107); CREATININE 0.84 mg/dL (0.60-1.30); GLOMERULAR FILTR. RATE CALC > 60 mL/min (>60); GLUCOSE,RANDOM 108 mg/dL (70-110); POTASSIUM 3.2 mmol/L (3.5-5.1); SODIUM SERUM 140 mmol/L (136-145); UREA NITROGEN, BLOOD 6 mg/dL (7-18)
[2020-11-23 17:34] LABS: COVID AG,FIA SOURCE NASOPHARYNGEAL
[2020-11-23 17:38] LABS: ALANINE AMINOTRANSFERASE 20 U/L (12-78); ALBUMIN 4.2 g/dL (3.4-5.0); ALKALINE PHOSPHATASE 60 U/L (46-116); ASPARTATE AMINOTRANSFERASE 13 U/L (15-37); BILIRUBIN,TOTAL 0.4 mg/dL (0.1-1.0); TOTAL PROTEIN, SERUM 8.1 g/dL (6.4-8.2)
[2020-11-23 18:02] LABS: AMPHET/METH SCREEN,URINE NEGATIVE (NEGATIVE); BARBITURATE SCREEN, URINE NEGATIVE (NEGATIVE); BENZODIAZEPINES SCREEN,URINE NEGATIVE (NEGATIVE); CANNABINOID SCREEN,URINE NEGATIVE (NEGATIVE); COCAINE SCREEN,URINE NEGATIVE (NEGATIVE); METHADONE SCREEN, URINE NEGATIVE (NEGATIVE); OPIATE SCREEN,URINE NEGATIVE (NEGATIVE)
[2020-11-23 18:05] LABS: PHENCYCLIDINE SCREEN,URINE NEGATIVE (NEGATIVE)
[2020-11-23] MEDS: POTASSIUM CHLORIDE 20 MEQ ER TABLET PO ONE ×2 (18:21→18:23)
[2020-11-23] MEDS ORDERED: DiphenhydrAMINE HCL 50 MG/ML VIAL ONE (18:54)
[2020-11-23] MEDS ORDERED: LORazepam 2 MG/ML VIAL IM ONE (19:00)
[2020-11-23] MEDS ORDERED: DiphenhydrAMINE HCL 50 MG/ML VIAL IM ONE (19:00)
[2020-11-23] MEDS ORDERED: HALOPERIDOL LACTATE 5 MG/ML VIAL IM ONE (19:00)
[2020-11-23] MEDS ORDERED: HALOPERIDOL 5 MG TABLET PO PRN (19:30)
[2020-11-24 01:53] VITALS: BP 147/83
[2020-11-24] MEDS ORDERED: ONDANSETRON HCL 4 MG TABLET PO PRN (09:15)
[2020-11-24] MEDS ORDERED: PETROLATUM,WHITE 28 GM JELLY TP PRN (09:15)
[2020-11-24] MEDS ORDERED: MAGNESIUM HYDROXIDE SUSPENSION 30 ML UDCUP PO PRN (09:15)
[2020-11-24] MEDS ORDERED: LOPERAMIDE HCL 2 MG CAPSULE PO PRN (09:15)
[2020-11-24] MEDS ORDERED: CloNIDine HCL 0.1 MG TABLET PO PRN (09:15)
[2020-11-24] MEDS ORDERED: ACETAMINOPHEN 325 MG TABLET PO PRN (09:15)
[2020-11-24] MEDS ORDERED: GuaiFENesin/D-METHORPHAN [SUGAR-FREE] 200-20MG/10 ML SYRUP UDCUP PO PRN (09:15)
[2020-11-24] MEDS ORDERED: MAG HYDROX/AL HYDROX/SIMETH ES 30 ML SUSPENSION UDCUP PO PRN (09:15)
[2020-11-24] MEDS ORDERED: NICOTINE 14 MG/24 HOUR PATCH TD PRN (09:15)
[2020-11-24] MEDS ORDERED: IBUPROFEN 400 MG TABLET PO PRN (09:15)
[2020-11-24] MEDS ORDERED: ALBUTEROL SULFATE HFA 90 MCG/PUFF 8 GM INHALER IH PRN (09:15)
[2020-11-24] MEDS ORDERED: DOCUSATE SODIUM 100 MG CAPSULE PO PRN (09:15)
[2020-11-24] MEDS: FERROUS SULFATE 325 MG EC TABLET PO SCH (16:36)
[2020-11-24 21:25] VITALS: BP 106/63
[2020-11-25] MEDS: LORazepam 2 MG TABLET PO PRN ×2 (03:51→13:11)
[2020-11-25 03:52] VITALS: BP 124/70
[2020-11-25] MEDS: FERROUS SULFATE 325 MG EC TABLET PO SCH ×2 (06:58→17:19)
[2020-11-25] MEDS ORDERED: PredniSONE 10 MG TABLET PO SCH (09:00)
[2020-11-25] MEDS: HALOPERIDOL 10 MG TABLET PO SCH ×2 (13:00→17:19)
[2020-11-25 16:09] VITALS: BP 101/73
[2020-11-25] MEDS: ZOLPIDEM TARTRATE 10 MG TABLET PO PRN (20:40)
[2020-11-26 00:15] VITALS: BP 109/60
[2020-11-26] MEDS: FERROUS SULFATE 325 MG EC TABLET PO SCH ×2 (06:58→17:23)
[2020-11-26 08:23] VITALS: BP 118/91
[2020-11-26] MEDS: HALOPERIDOL 10 MG TABLET PO SCH ×3 (08:47→17:00)
[2020-11-26] MEDS: LORazepam 2 MG TABLET PO PRN (14:51)
[2020-11-26 16:00] VITALS: BP 105/64
[2020-11-26] MEDS: ZOLPIDEM TARTRATE 10 MG TABLET PO PRN (21:02)
[2020-11-27] VITALS: BP 101/65
[2020-11-27] MEDS: FERROUS SULFATE 325 MG EC TABLET PO SCH ×2 (06:53→17:00)
[2020-11-27 08:14] VITALS: BP 122/81
[2020-11-27] MEDS: HALOPERIDOL 10 MG TABLET PO SCH ×3 (08:41→16:48)
[2020-11-27 16:10] VITALS: BP 100/71
[2020-11-27] MEDS: LORazepam 2 MG TABLET PO PRN (21:06)
[2020-11-28 05:43] VITALS: BP 166/76
[2020-11-28] MEDS: FERROUS SULFATE 325 MG EC TABLET PO SCH ×2 (06:32→16:14)
[2020-11-28 08:41] VITALS: BP 104/80
[2020-11-28] MEDS: HALOPERIDOL 10 MG TABLET PO SCH ×3 (09:00→16:14)
[2020-11-28 16:08] VITALS: BP 115/70
== END 2020-11-28 16:30 | disposition home or self-care (01) | DRG 750 ==
LOC: EMS 16:57 → B3A 11-24 00:42 → UNDOADMIN 11-24 00:42 → AHU 11-24 00:43 → B3A 11-24 00:43 → AHU 11-24 12:03 → B3A 11-24 14:00
PROVIDERS: ADMIT Psychiatry & Neurology Psychiatry; ATTEND Psychiatry & Neurology Psychiatry
DX: F20.9 Schizophrenia, unspecified (principal); E87.6 Hypokalemia; F31.9 Bipolar disorder, unspecified; F41.9 Anxiety disorder, unspecified; Z20.822 Contact with and (suspected) exposure to COVID-19
CPT/HCPCS: 80053; 85025; 87426; 99291; G0480; J1200; J1630; J2060